=== PATIENT | female | born 1955 | race Caucasian/White ===

== ENCOUNTER 2020-05-03 10:28 | Emergency (ER) | payer OTHER ==
[~2020-05-03] VITALS: Ht 172.7 cm; Wt 81.6 kg
[~2020-05-03 10:28] MED LIST: ACIPHEX PO; DIA5 PO; GLU500 PO; NEU300 PO; NOR10 PO; ZOC20 PO
[2020-05-03] MEDS ORDERED: ACETAMINOPHEN-H1 TA1 PO (12:08)
[2020-05-03 12:31] VITALS: BP 128/70
== END 2020-05-03 12:31 | disposition home or self-care (01) ==
LOC: ED 10:28
DX: M17.0 Bilateral primary osteoarthritis of knee (principal); M25.462 Effusion, left knee; M25.461 Effusion, right knee; J45.909 Unspecified asthma, uncomplicated; I10 Essential (primary) hypertension; E11.9 Type 2 diabetes mellitus without complications; E78.00 Pure hypercholesterolemia, unspecified; Z88.8 Allergy status to other drugs, medicaments and biological substances